=== PATIENT | male | born 1985 | race Caucasian/White ===

== ENCOUNTER 2021-01-02 03:02 | Emergency (ER) | payer BC ==
[~2021-01-02] VITALS: Ht 175.3 cm; Wt 120.0 kg
[2021-01-02] MEDS ORDERED: ONDANSETRON ODT 4 MG TAB.RAPDIS PO ONE (03:15)
[2021-01-02] MEDS ORDERED: ONDA4TAB7 PO (03:26)
--- NOTE | 2021-01-02 03:27 | PHYS DOC ---
Adult General Chief Complaint Chief Complaint: NAUSEA/VOMITING/DIARRHEA HPI HPI Patient is an otherwise healthy 35-year-old male who presents with a chief complaint of a couple episodes of nonbloody nonbilious emesis. 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 Denies any fevers, sore throat, chest pain, shortness of breath, abdominal pain, dysuria, hematuria or blood in the stool. 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 States he has not had an episode in a few hours but has not eaten anything. States he can drink fluid however though. Requested a work note. Review of Systems Review of Systems Review of systems otherwise unremarkable except noted in HPI Current Medications Current Medications Current Medications Medications (Trade) Dose Ordered Sig/Shavonne Start Time Stop Time Status Last Admin Dose Admin Ondansetron HCl (Zofran Odt) 8 mg 1X ONCE 01/02/21 03:15 01/02/21 03:16 UNV 01/02/21 03:14 8 MG Physical Exam Physical Exam Constitutional: Well developed, well nourished, no acute distress, non-toxic appearance. [] Eyes: conjunctiva normal, no discharge. [] Cardiovascular:Heart rate regular rhythm, no murmur [] Lungs & Thorax: Bilateral breath sounds clear to auscultation [] Abdomen: Bowel sounds normal, soft, no tenderness, no masses, no pulsatile m asses. [] Skin: Warm, dry, no erythema, no rash. [] Back: no CVA tenderness. [] Neurologic: Alert and oriented X 3, normal motor function, normal sensory function, no focal deficits noted. [] Psychologic: Affect normal, judgement normal, mood normal. [] EKG EKG [] Radiology/Procedures Radiology/Procedures [] Heart Score C/O Chest Pain: No Risk Factors: Risk Factors: DM, Current or recent (<one month) smoker, HTN, HLP, family history of CAD, obesity. Risk Scores: Risk Factors: DM, Current or recent (<one month) smoker, HTN, HLP, family history of CAD, obesity. Course & Med Decision Making Course & Med Decision Making Patient is a 35-year-old male who presents with nausea vomiting x3 Vital signs not concerning. Physical exam noted above. Patient given oral Zofran. Able to take p.o. Given prescription of Zofran. Given work note for tomorrow. Advised on nutrition and hydration over the next couple of days and switching up diet to light and clear. Since patient is visiting, advised to come back to the emergency department immediately with new or concerning symptoms. Patient grateful, verbalized understanding and agreed with plan of discharge. [] Dragon Disclaimer Dragon Disclaimer This electronic medical record was generated, in whole or in part, using a voice recognition dictation system. Departure Departure: Impression: Primary Impression: Nausea & vomiting Disposition: HOME / SELF CARE / HOMELESS Condition: GOOD Referrals: PCP,MICHELLE (PCP) SHEILA LANDON MD Patient Instructions: Nausea, Adult Additional Instructions: Thank you for coming into the emergency department tonight and allowing us to take care of you. Please take your nausea medicine as prescribed. You are given a work note for tomorrow just in case you are feeling unwell and cannot go in and teach. Also, it would be a good idea to stay away from other people if you think you have an infection as discussed. Please switch up your diet as dis cussed to light and clear with lots of fluids as discussed. Please come back to the emergency department immediately with new or concerning symptoms as discussed. Scripts Ondansetron Hcl (ZOFRAN) 4 Mg Tablet 1 TAB PO PRN Q6HRS PRN for NAUSEA, #20 TAB Prov: POORNIMA ESCOBEDO MD 01/02/21 POORNIMA ESCOBEDO MD Jan 02, 2021 03:27
[2021-01-02] MEDS ORDERED: HYDROcodone/APAP 5/325MG 1 TAB TABLET PO ONE (03:45)
[2021-01-02] MEDS ORDERED: METOCLOPRAMIDE HCL 10 MG/2 ML VIAL. IM ONE (04:15)
[2021-01-02] MEDS ORDERED: MORPHINE SULFATE 2 MG/ML DISP.SYRIN. IM ONE (04:15)
[2021-01-02] MEDS ORDERED: MORPHINE SULFATE 4 MG/ML DISP.SYRIN. IM ONE (04:15)
[2021-01-02] MEDS ORDERED: HYDR-2155 PO (04:32)
[2021-01-02] MEDS ORDERED: IV RINGERS SOLUTION,LACTATED 1,000 ML IV ONE (05:00)
--- NOTE | 2021-01-02 05:12 | RAD ---
CT abdomen and pelvis without contrast: Reason for examination: Umbilical pain with nausea and vomiting. Helical images were obtained through the abdomen and pelvis with no intravenous or oral contrast admi nistered. Reconstruction was performed in sagittal and coronal veins. Exposure: One or more of the following individualized dose reduction techniques were utilized for thi s examination: 1. Automated exposure control 2. Adjustment of the mA and/or kV according to patient size 3. Use of iterative reconstruction technique. The lung bases are clear. The heart size is normal with no pericardial effusion. No abnormality seen at the liver, spleen, adrenal glands or pancreas. The gallbladder is surgically a bsent. The abdominal aorta and inferior vena cava show no acute abnormalities. There are a few divert iculi in the sigmoid colon without evidence of diverticulitis or colitis. No abnormality seen at the appendix. The small intestinal tract shows no abnormal dilatation, wall thickening or obstruction. No abnormality seen at the stomach or duodenum. The kidneys show no renal masses, renal calculi, hydron ephrosis or obstructive uropathy. No abnormality seen at the bladder. Prostate gland contains calcifications. Seminal vesicles are symm etric. No free fluid or free air is seen in the abdomen or pelvis. There are degenerative changes at the L5-S1 disc level. No acute bony abnormalities are evident. IMPRESSION: A few diverticuli in the sigmoid colon but no diverticulitis. No abnormality at the appendix. No renal calculi or obstructive uropathy evident. Degenerative changes at the L5-S1 disc level. Calcifications in the prostate gland. Electronically signed by: Melanie Roth MD (01/02/2021 5:10 AM) [facility]
[2021-01-02 05:17] LABS: BASO # 0.1 x10^3/uL (0.0-0.2); BASO % 1 % (0-3); EOS # 0.1 x10^3/uL (0.0-0.7); EOS % 1 % (0-3); HEMOGLOBIN 17.5 g/dL (13.0-17.5); LYMPH # 1.7 x10^3/uL (1.0-4.8); LYMPH % 12 % (24-48); MEAN CORPUSCULAR HEMOGLOBIN 31 pg (25-35); MEAN CORPUSCULAR HGB CONC 34 g/dL (31-37); MEAN CORPUSCULAR VOLUME 91 fL (79-100); MONO % 7 % (0-9); NEUT # 10.8 x10^3uL (1.8-7.7); NEUT % 79 % (31-73); PLATELET COUNT 325 x10^3/uL (140-400); RED BLOOD COUNT 5.69 x10^6/uL (4.30-5.70); RED CELL DISTRIBUTION WIDTH 13.6 % (11.5-14.5); WHITE BLOOD COUNT 13.7 x10^3/uL (4.0-11.0)
[2021-01-02 05:24] LABS: CALCIUM 9.4 mg/dL (8.5-10.1); CREATININE 1.2 mg/dL (0.7-1.3); GFR 68.1; POTASSIUM 3.9 mmol/L (3.5-5.1)
[2021-01-02 05:31] LABS: TOTAL BILIRUBIN 0.8 mg/dL (0.2-1.0); TOTAL PROTEIN 8.2 g/dL (6.4-8.2)
[2021-01-02 05:45] VITALS: BP 128/75
== END 2021-01-02 06:25 | disposition home or self-care (01) ==
LOC: ER 03:02
DX: R11.2 Nausea with vomiting, unspecified (principal)
CPT/HCPCS: 36415; 74176; 80053; 83690; 85025; 96360; 96372; 99284; J2270; J2765; J7120; Q0162